=== PATIENT | male | born 1995 | race Caucasian/White ===

== ENCOUNTER 2017-06-07 17:39 | Emergency (ER) | payer OTHER | END 2017-06-07 22:21 | disposition home or self-care (01) | LOC: FTE 17:39 | DX: S02.2XXA Fracture of nasal bones, initial encounter for closed fracture (principal); W50.1XXA Accidental kick by another person, initial encounter; Y92.9 Unspecified place or not applicable | CPT/HCPCS: 70486; 99284-25 ==

== ENCOUNTER 2017-06-13 12:21 | Emergency (ER) | payer OTHER ==
[2017-06-13] MEDS: OXYMETAZOLINE 0.05% 15 ML NAS SPRAY NASAL (13:57)
[2017-06-13] MEDS ORDERED: IBUPROFEN 800 MG TAB (15:07)
== END 2017-06-13 15:12 | disposition home or self-care (01) ==
LOC: FTE 12:21
DX: S02.2XXA Fracture of nasal bones, initial encounter for closed fracture (principal); R04.0 Epistaxis; Y08.89XA Assault by other specified means, initial encounter
CPT/HCPCS: 30903; 99284-25